=== PATIENT | male | born 1965 | race Caucasian/White ===

== ENCOUNTER 2016-07-08 11:49 | Emergency (ER) | payer OTHER ==
[~2016-07-08] VITALS: Ht 180.3 cm; Wt 138.3 kg
--- NOTE | 2016-07-08 12:08 | NUR ---
BIB SELF, CC: MULTIPLE STOUT ON BOTH HANDS, AND BRIDGE OF NOSE OIL STOUT AT 10:30 AM . AWAITING MD ORDER
[2016-07-08] MEDS ORDERED: SILVER SULFADIAZINE CREAM 25 GM TUBE ONE (12:23)
[2016-07-08] MEDS ORDERED: TDAP [DIPH/PERTUSSIS/TET] 0.5 ML VIAL IM ONE ×2 (12:23→12:30)
[2016-07-08] MEDS ORDERED: SILVER SULFADIAZINE CREAM 25 GM TUBE TP ONE (12:30)
--- NOTE | 2016-07-08 12:35 | NUR ---
Patient discharged to home in stable condition. Written and verbal after care instructions given. Patient verbalizes understanding of instruction.
[2016-07-08 12:37] VITALS: BP 140/85
--- NOTE | 2016-07-08 12:43 | NUR ---
APPLIED DRESSING ON 2ND DEGREE BURN BOTH HANDS
--- NOTE | 2016-07-08 12:46 | NUR ---
KATAJ ARGUELLO AT FOR WOUND CARE.
--- NOTE | 2016-07-08 12:47 | NUR ---
Patient discharged to home in stable condition. Written and verbal after care instructions given. Patient verbalizes understanding of instruction. All questions answered.
== END 2016-07-08 12:53 | disposition home or self-care (01) ==
LOC: ER 11:53
DX: T23.202A Burn of second degree of left hand, unspecified site, initial encounter (principal); T23.201A Burn of second degree of right hand, unspecified site, initial encounter; T20.14XA Burn of first degree of nose (septum), initial encounter; X08.8XXA Exposure to other specified smoke, fire and flames, initial encounter; Y93.G3 Activity, cooking and baking; Y92.89 Other specified places as the place of occurrence of the external cause; Y99.8 Other external cause status
CPT/HCPCS: 90715; A4606; Z7610

== ENCOUNTER 2018-10-01 22:33 | Emergency (ER) | payer OTHER ==
[~2018-10-01] VITALS: Ht 177.8 cm; Wt 131.5 kg
--- NOTE | 2018-10-01 23:07 | NUR ---
BIBSELF FROM HOME WITH COUSIN. TO ER BED 2. AAOX4. NO RESP DSITRESS NOTED, BREATHING EVEN AND UNLABORED. AMBULATORY.C/O ALLERGIC REACTION TO UNKNOWN ALLERGEN. PT REPORT SEVER ITCHING ALL OVER HIS BODY, FACIAL FLUSHING, AND SMALL RED BUMPS. PT REPORTS TAKING 4 VIT C 500MG, 2 VIT B12 AND COCAINE WHICH IS NOT NEW AND HAVE USED THE SAME BATCH WITHOUT REACTION. PT REPORTS EATING PLENTY OF SHRIMP TODAY. AT BEDSIDE FOR EVAL. AWAITING ORDERS.
--- NOTE | 2018-10-01 23:11 | NUR ---
PT SATTING @ 97% ON RA. TALKING IN FULL SENTENCES W/O SOB
[2018-10-01] MEDS ORDERED: methylPREDNISolone SOD SUCC 125 MG/2ML VIAL ONE (23:21)
[2018-10-01] MEDS ORDERED: FAMOTIDINE/PF INJ 20 MG/2 ML VIAL IV ONE ×2 (23:21→23:30)
[2018-10-01] MEDS ORDERED: diphenhydrAMINE HCL 50 MG/ML VIAL ONE (23:21)
[2018-10-01] MEDS ORDERED: methylPREDNISolone SOD SUCC 125 MG/2ML VIAL IV ONE (23:30)
[2018-10-01] MEDS ORDERED: IV NS 0.9% 1,000 ML BAG IV ONE (23:30)
[2018-10-01] MEDS ORDERED: diphenhydrAMINE HCL 50 MG/ML VIAL IV ONE (23:30)
--- NOTE | 2018-10-02 00:06 | NUR ---
PT VERBALIZED RELIEF FROM ITCHING. FACIAL REDNESS STARTING TO SUBSIDE.
--- NOTE | 2018-10-02 00:37 | NUR ---
IV removed. Catheter intact and site benign. Pressure and 4x4 applied to site. No bleeding noted.Patient discharged to home in stable condition. Written and verbal after care instructions given. Patient verbalizes understanding of instruction. Pt ambulatory with a steady gait
[2018-10-02 00:39] VITALS: BP 131/80
== END 2018-10-02 00:41 | disposition home or self-care (01) ==
LOC: ER 22:36
DX: R60.0 Localized edema (principal); T46.4X5A Adverse effect of angiotensin-converting-enzyme inhibitors, initial encounter; T50.2X5A Adverse effect of carbonic-anhydrase inhibitors, benzothiadiazides and other diuretics, initial encounter; T39.015A Adverse effect of aspirin, initial encounter; T45.2X5A Adverse effect of vitamins, initial encounter; Y92.89 Other specified places as the place of occurrence of the external cause; I10 Essential (primary) hypertension
CPT/HCPCS: 96374; 96375; 99283; J1200; J2930; J3490; J7030